=== PATIENT | male | born 1940 | race Caucasian/White ===

== ENCOUNTER 2021-09-27 21:13 | Observation (INO) | payer MEDICARE, BC ==
[2021-09-27 22:00] LABS: #Eosinphils 0.2 10x3/uL (0.0-0.5); #Monocytes 0.6 10x3/uL (0.0-1.1); #Neutrophils 2.6 10x3/uL (1.5-8.4); %Basophils 0.9 % (0.0-2.0); %Eosinophils 4.1 % (0.0-6.0); %Lymphocytes 21.7 % (18.0-47.0); %Monocytes 14.3 % (0.0-10.0); %Neutrophils 58.8 % (40.0-75.0); Hemoglobin 11.2 g/dL (13.5-17.5); Mean Corpuscular HGB CONC 33.1 g/dL (32.0-36.0); Mean Corpuscular Hemoglobin 32.7 pg (27.0-33.0); Mean Corpuscular Volume 98.8 fl (81.2-95.1); Mean Platelet Volume 10.8 fl (7.4-10.4); Platelet Count 195 10x3/uL (150-450); RBC Distribution Width 12.7 % (11.5-14.5); Red Blood Cell (RBC) Count 3.42 10x6/uL (4.32-5.72); White Blood Cell (WBC) Count 4.4 10x3/uL (3.5-10.5)
[2021-09-27 22:23] LABS: ALT (SGPT) 14 U/L (8-55); AST (SGOT) 16 U/L (5-34); Albumin 3.6 g/dL (3.4-4.8); Alkaline Phosphatase 45 U/L (40-110); Anion Gap 12 mmol/L (10-20); BUN (Urea Nitrogen) 23 mg/dL (8.4-25.7); Bilirubin, Total 0.6 mg/dL (0.2-1.2); Calc. Creatinine Clearance 0 mL/min (70-130); Calcium 8.2 mg/dL (7.8-10.44); Carbon Dioxide 25 mmol/L (23-31); Chloride 106 mmol/L (98-107); Globulin 2.4 g/dL (2.4-3.5); Glucose 94 mg/dL (83-110); Potassium 3.8 mmol/L (3.5-5.1); Sodium 139 mmol/L (136-145)
[2021-09-27] MEDS ORDERED: Fluorescein Opthalmic Strip ONE (22:23)
[2021-09-27] MEDS ORDERED: Senokot S 8.6-50 MG TAB PO PRN (23:18)
[2021-09-27] MEDS ORDERED: Ondansetron PF 4 MG/2 ML Vial IVP PRN (23:18)
[2021-09-27] MEDS ORDERED: Acetaminophen 325 MG TAB PO PRN (23:18)
[2021-09-27] MEDS ORDERED: Docusate 100 MG CAP PO PRN (23:22)
[2021-09-27] MEDS ORDERED: Bismuth Subs 17.5 mg/mL Susp PO PRN (23:22)
[2021-09-27] MEDS ORDERED: Sodium Chloride 0.9% 500 ML IV SCH (23:30)
[2021-09-28 01:51] LABS: SARS-CoV-2 NAA Rapid Test Not Detected (NotDetected)
[2021-09-28 03:41] VITALS: BMI 25.2
[2021-09-28 04:11] LABS: Bilirubin Neg (Negative); Blood, Urine Negative (Negative); Clarity Clear (Clear); Glucose, Urine (Dipstick) Normal (Negative); Ketone, Urine Negative (Negative); Leukocyte Negative (Negative); Nitrite Negative (Negative); Protein, Urine (Dipstick) Negative (Neg-Trace); Urobilinogen Normal mg/dL (Less than 2)
[2021-09-28 04:12] LABS: Anion Gap 11 mmol/L (10-20); BUN (Urea Nitrogen) 19 mg/dL (8.4-25.7); Calc. Creatinine Clearance 69 mL/min (70-130); Calcium 8.4 mg/dL (7.8-10.44); Carbon Dioxide 26 mmol/L (23-31); Chloride 106 mmol/L (98-107); Glucose 99 mg/dL (83-110); Potassium 4.7 mmol/L (3.5-5.1); Sodium 138 mmol/L (136-145)
[2021-09-28 04:18] LABS: Bacteria/HPF None Seen HPF (None Seen); Mucous/LPF None Seen LPF (<2+); RBC/HPF 0-3 HPF (0-3); Squamous Epithelial 0-3 HPF (0-3); WBC/HPF None Seen HPF (0-3)
[2021-09-28] MEDS: Enoxaparin Sodium 40 MG/0.4 ML SYRINGE SC SCH (07:20)
[2021-09-28] MEDS: Pantoprazole 40 MG GRANULES PACKET PO SCH (07:21)
[2021-09-28] MEDS: Fish Oil 1,000 MG CAP PO SCH ×2 (07:21→21:58)
[2021-09-28] MEDS: Multivitamin W/ Minerals 1 TAB PO SCH (07:21)
[2021-09-28] MEDS: Sodium Chloride 0.65% Nasal 44 ML BOT EA NARE SCH (07:22)
[2021-09-28] MEDS ORDERED: BIOTIN 1 MG PO SCH (09:00)
[2021-09-28] MEDS ORDERED: CALCIUM CITRATE PO SCH (09:00)
[2021-09-28] MEDS ORDERED: Gabapentin 100 MG CAP PO SCH ×2 (09:00→21:00)
[2021-09-28] MEDS: Calcium Carbonate 500 MG ChewTAB PO PRN ×2 (18:04→21:58)
[2021-09-28] MEDS ORDERED: Atorvastatin Calcium 40 MG TAB PO SCH (21:00)
[2021-09-28] MEDS ORDERED: Melatonin 3 MG TAB PO SCH (22:15)
[2021-09-29] MEDS: Sodium Chloride 0.65% Nasal 44 ML BOT EA NARE SCH (01:20)
[2021-09-29 04:16] LABS: #Eosinphils 0.2 10x3/uL (0.0-0.5); #Monocytes 0.7 10x3/uL (0.0-1.1); #Neutrophils 4.6 10x3/uL (1.5-8.4); %Basophils 0.5 % (0.0-2.0); %Eosinophils 3.2 % (0.0-6.0); %Lymphocytes 16.2 % (18.0-47.0); %Monocytes 10.4 % (0.0-10.0); %Neutrophils 69.5 % (40.0-75.0); Hemoglobin 11.5 g/dL (13.5-17.5); Mean Corpuscular HGB CONC 33.6 g/dL (32.0-36.0); Mean Corpuscular Hemoglobin 32.6 pg (27.0-33.0); Mean Corpuscular Volume 96.9 fl (81.2-95.1); Platelet Count 186 10x3/uL (150-450); RBC Distribution Width 12.8 % (11.5-14.5); Red Blood Cell (RBC) Count 3.53 10x6/uL (4.32-5.72); White Blood Cell (WBC) Count 6.6 10x3/uL (3.5-10.5)
[2021-09-29 04:33] LABS: Anion Gap 12 mmol/L (10-20); BUN (Urea Nitrogen) 17 mg/dL (8.4-25.7); Calc. Creatinine Clearance 69 mL/min (70-130); Calcium 8.6 mg/dL (7.8-10.44); Carbon Dioxide 25 mmol/L (23-31); Chloride 106 mmol/L (98-107); Glucose 104 mg/dL (83-110); Magnesium 2.1 mg/dL (1.6-2.6); Potassium 3.7 mmol/L (3.5-5.1); Sodium 139 mmol/L (136-145)
[2021-09-29] MEDS: Multivitamin W/ Minerals 1 TAB PO SCH (07:41)
[2021-09-29] MEDS: Fish Oil 1,000 MG CAP PO SCH (07:41)
[2021-09-29] MEDS: Pantoprazole 40 MG GRANULES PACKET PO SCH (07:42)
[2021-09-29] MEDS: Enoxaparin Sodium 40 MG/0.4 ML SYRINGE SC SCH (07:42)
[2021-09-29 11:48] VITALS: TEMP 97.8
[2021-09-29 12:40] VITALS: BP 131/98
== END 2021-09-29 12:58 | disposition home or self-care (01) ==
LOC: CSHERS 21:13 → CSHTELE 09-28 02:00
PROVIDERS: ADMIT Student in an Organized Health Care Education/Training Program; ATTEND Family Medicine
DX: R55 Syncope and collapse (principal); E86.0 Dehydration; E78.5 Hyperlipidemia, unspecified; K21.9 Gastro-esophageal reflux disease without esophagitis; R79.89 Other specified abnormal findings of blood chemistry; D53.9 Nutritional anemia, unspecified; G89.29 Other chronic pain; M54.50 Low back pain, unspecified; N18.2 Chronic kidney disease, stage 2 (mild); Z79.899 Other long term (current) drug therapy; Z79.82 Long term (current) use of aspirin; Z87.891 Personal history of nicotine dependence; Z72.89 Other problems related to lifestyle; F11.90 Opioid use, unspecified, uncomplicated; Z20.822 Contact with and (suspected) exposure to COVID-19
CPT/HCPCS: 71045; 80048 ×2; 80053; 81001; 83735; 84443; 84484 ×3; 85025 ×2; 93005 ×2; 93306; 96372 ×2; 97110; 97116 ×2; 97139 ×3; 99285; G0378 ×3; U0002; 36415; 93010; J1650; J7030

== ENCOUNTER 2022-02-19 15:10 | Outpatient (CLI) | payer MEDICARE, BC | END 2022-02-19 15:11 | disposition home or self-care (01) | LOC: CSHMRI 15:10 | PROVIDERS: ATTEND Anesthesiology Pain Medicine | DX: S32.000A Wedge compression fracture of unspecified lumbar vertebra, initial encounter for closed fracture (principal); S22.081A Stable burst fracture of T11-T12 vertebra, initial encounter for closed fracture; Z98.890 Other specified postprocedural states; M48.061 Spinal stenosis, lumbar region without neurogenic claudication; G99.2 Myelopathy in diseases classified elsewhere; M43.17 Spondylolisthesis, lumbosacral region; M43.16 Spondylolisthesis, lumbar region; M41.86 Other forms of scoliosis, lumbar region; M47.816 Spondylosis without myelopathy or radiculopathy, lumbar region | CPT/HCPCS: 72148 ==

== ENCOUNTER 2022-03-07 14:05 | Outpatient (CLI) | payer MEDICARE, BC | END 2022-03-07 14:06 | disposition home or self-care (01) | LOC: CSHMRI 14:05 | PROVIDERS: ATTEND Anesthesiology Pain Medicine | DX: S32.000A Wedge compression fracture of unspecified lumbar vertebra, initial encounter for closed fracture (principal); Z98.890 Other specified postprocedural states; S32.010D Wedge compression fracture of first lumbar vertebra, subsequent encounter for fracture with routine healing; S22.080D Wedge compression fracture of T11-T12 vertebra, subsequent encounter for fracture with routine healing | CPT/HCPCS: 72148 ==

== ENCOUNTER 2024-04-30 10:17 | Emergency (ER) | payer MEDICARE ==
[2024-04-30 11:39] LABS: Influenza A by NAA Not Detected (NotDetected); Influenza B by NAA Not Detected (NotDetected); SARS-CoV-2 NAA Rapid Test DETECTED (NotDetected)
== END 2024-04-30 12:11 | disposition home or self-care (01) ==
LOC: CSHERS 10:17
DX: U07.1 COVID-19 (principal)
CPT/HCPCS: 0240U; 99284